=== PATIENT | female | born 1960 | race Caucasian/White ===

== ENCOUNTER → 2017-03-04 | Outpatient (CLI) | payer BC ==
--- NOTE | 2017-03-05 09:41 | MM ---
Reason for exam: screening (asymptomatic). Last mammogram was performed 2 years and 2 months ago. History: Patient is postmenopausal and had first child at age 30. Excisional biopsy of the left breast. Took hormonal contraceptives for 31 years 7 months. Physical Findings: A clinical breast exam by your physician is recommended on an annual basis and results should be correlated with mammographic findings. MG Screening Mammo w CAD Bilateral CC and MLO view(s) were taken. Prior study comparison: January 16, 2015, bilateral MG screening mammo w CAD. October 21, 2012, bilateral digital screening mammo w/CAD. There are scattered fibroglandular densities. There is chronic nodularity in the left breast. There is no discrete abnormality. ASSESSMENT: Benign, BI-RAD 2 RECOMMENDATION: Routine screening mammogram of both breasts in 1 year.
== END | disposition home or self-care (01) ==
LOC: RADMAMWWP 08:20
PROVIDERS: ATTEND Obstetrics & Gynecology
DX: Z12.31 Encounter for screening mammogram for malignant neoplasm of breast (principal)

== ENCOUNTER 2021-09-11 07:50 | Day surgery (SDC) | payer BC ==
[2021-09-05 14:44] VITALS: BMI 32.5
[~2021-09-11 07:50] MED LIST: LACTATED RINGERS 1,000 ML IV SCH; LIDOCAINE 1% (10MG/ML) FOR IV START INTRADERMA PRN
[2021-09-11 08:10] VITALS: TEMP 97.4
[2021-09-11] MEDS ORDERED: PROPOFOL 10 MG/ML 20 ML VIAL IV ONE (09:26)
[2021-09-11] MEDS ORDERED: MIDAZOLAM 2 MG/2 ML VIAL ONE (09:26)
[2021-09-11] MEDS ORDERED: fentaNYL (PF) 50 MCG/ML 2 ML AMP ONE (09:26)
--- NOTE | 2021-09-11 09:52 | P.PCN ---
Date of Procedure: 09/11/21 Procedure(s) Performed: BRIEF HISTORY: Patient is a 60-year-old pleasant white female scheduled for an elective colonoscopy as a part of evaluation of prior history of colon polyps. Last coloscopy was 6 years ago. PROCEDURE PERFORMED: Colonoscopy. PREOPERATIVE DIAGNOSIS: Screening of colon polyps. IV sedation per Anesthesia. PROCEDURE: After informed consent was obtained, the patient, was brought into the endoscopy unit. IV sedation was administered by Anesthesia under continuous monitoring. Digital rectal examination was normal. Initially the Olympus CF-160 flexible video colonoscope was then inserted in the rectum, gradually advanced into the cecum without any difficulty. Careful examination was performed as the scope was gradually being withdrawn. Ileocecal valve and the appendiceal orifice were visualized and appeared normal. Prep was excellent. Mucosa of the cecum, ascending colon, transverse colon, descending colon, sigmoid colon, and rectum appeared normal. Scattered sigmoid diverticulosis. Retroflexion was performed in the rectum and no lesions were seen. The patient tolerated the procedure well. IMPRESSION: Normal-appearing colon from rectum to cecum with no evidence of colorectal neoplasia Scattered Sigmoid diverticulosis. RECOMMENDATIONS: Findings of this examination were discussed with the patient as well as her family. She was advised to have a repeat screening colonoscopy in 5 years from now because of the prior history of colon polyps.
[2021-09-11 10:02] VITALS: RESP 16
[2021-09-11 10:23] VITALS: BP 140/93; PULSE 64
== END 2021-09-11 10:35 | disposition home or self-care (01) ==
LOC: ORWHC2ENDO 07:50
PROVIDERS: ATTEND Internal Medicine Gastroenterology
DX: K57.30 Diverticulosis of large intestine without perforation or abscess without bleeding (principal); Z86.010 Personal history of colon polyps
CPT/HCPCS: 45378; J2250; J3010; J2704

== ENCOUNTER 2023-04-30 19:56 | Emergency (ER) | payer BC ==
[2023-04-30 20:01] VITALS: BP 196/112; PULSE 54; RESP 26; TEMP 97.9
[2023-04-30] MEDS ORDERED: HYDROmorphone 0.5 MG/0.5 ML SYRINGE IM STA ×2 (20:07→21:24)
--- NOTE | 2023-04-30 20:43 | XR ---
EXAMINATION TYPE: XR chest 1V DATE OF EXAM: 04/30/2023 COMPARISON: None INDICATION: Fall, pain TECHNIQUE: Single frontal view of the chest is obtained. FINDINGS: The heart size is normal. The pulmonary vasculature is normal. The lungs are clear. There is a right humeral neck fracture. No additional fractures are identified. No pneumothorax is ev ident. IMPRESSION: 1. No acute pulmonary process. 2. Fracture right humeral neck
--- NOTE | 2023-04-30 20:44 | XR ---
EXAMINATION TYPE: XR humerus RT DATE OF EXAM: 04/30/2023 COMPARISON: Chest x-ray same day HISTORY: Fall, pain TECHNIQUE: 2 view right humerus FINDINGS: There is a fracture of the proximal humeral neck. There is some diastases of the fracture f ragments. No additional fractures are evident. IMPRESSION: 1. Fracture surgical neck right humerus.
--- NOTE | 2023-04-30 21:20 | ED ---
Fall HPI - General Chief Complaint: Fall Stated Complaint: right arm injury Time Seen by Provider: 04/30/23 20:02 Source: family Mode of arrival: wheelchair - History of Present Illness Initial Comments: Patient is a 62-year-old female who presents to the emergency department resents to the emergency department for right arm injury. Patient was walking her dog on the leash when it ran after another dog. Patient fell mainly on her right arm. She has severe pain to her right upper arm. No numbness or tingling. No head injury. - Related Data Home Medications Medication Instructions Recorded Confirmed Atorvastatin [Lipitor] 10 mg PO DAILY 09/05/21 09/11/21 Levothyroxine Sodium [Synthroid] 100 mcg PO DAILY 09/05/21 09/11/21 lisinopriL [Prinivil] 10 mg PO DAILY 09/05/21 09/11/21 Previous Rx's Medication Instructions Recorded HYDROcodone/APAP 7.5-325MG [[place] 1 tab PO Q4HR PRN #18 tab 04/30/23 7.5-325] Allergies Allergy/AdvReac Type Severity Reaction Status Date / Time No Known Allergies Allergy Verified 04/30/23 20:01 Review of Systems ROS Statement: Those systems with pertinent positive or pertinent negative responses have been documented in the HPI. ROS Other: All systems not noted in ROS Statement are negative. Past Medical History Past Medical History: Hyperlipidemia, Hypertension, Thyroid Disorder History of Any Multi-Drug Resistant Organisms: None Reported Past Surgical History: No Surgical Hx Reported Past Anesthesia/Blood Transfusion Reactions: No Reported Reaction Past Psychological History: No Psychological Hx Reported Smoking Status: Never smoker Past Alcohol Use History: Occasional Past Drug Use History: None Reported General Exam Limitations: no limitations General appearance: alert Head exam: Present: atraumatic, normocephalic, normal inspection Respiratory exam: Present: normal lung sounds bilaterally. Absent: respiratory distress, wheezes, rales, rhonchi, stridor Cardiovascular Exam: Present: regular rate, normal rhythm, normal heart sounds. Absent: systolic murmur, diastolic murmur, rubs, gallop, clicks Right Shoulder Exam: Present: normal inspection, full ROM. Absent: tenderness, swelling Upper Arm exam: Present: tenderness, swelling (upper mild). Absent: full ROM (not performed due to pain) Elbow exam: Present: normal inspection, full ROM. Absent: tenderness, swelling Vascular: Present: normal capillary refill Neurological exam: Present: alert Psychiatric exam: Present: normal affect, normal mood Course Vital Signs 04/30/23 19:57 Temperature 97.9 F Pulse Rate 54 L Respiratory 26 H Rate Blood Pressure 196/112 O2 Sat by Pulse 99 Oximetry Medical Decision Making - Medical Decision Making Was pt. sent in by a medical professional or institution (, NEET[facility], SOIL ANALYST, urgent care, hospital, or usp...) When possible be specific @ -No Did you speak to anyone other than the patient for history (EMS, parent, family, police, friend...)? What history was obtained from this source @ -No Did you review nursing and triage notes (agree or disagree)? Why? @ -I reviewed and agree with nursing and triage notes Were old charts reviewed (outside hosp., previous admission, EMS record, old EKG, old radiological studies, urgent care reports/EKG's, usp records)? Report findings @ -No old charts were reviewed Differential Diagnosis (chest pain, altered mental status, abdominal pain women, abdominal pain men, vaginal bleeding, weakness, fever, dyspnea, syncope, headache, dizziness, GI bleed, back pain, seizure, CVA, palpatations, mental health)? @ -Humerus fracture, shoulder fracture, arm sprain EKG interpreted by me (3pts min.). @ -As above X-rays interpreted by me (1pt min.). @ -Surgical neck fracture CT interpreted by me (1pt min.). @ -None done U/S interpreted by me (1pt. min.). @ -None done What testing was considered but not performed or refused? (CT, X-rays, U/S, labs)? Why? @ -None What meds were considered but not given or refused? Why? @ -None Did you discuss the management of the patient with other professionals (professionals i.e. [facility]ET[facility] Vaz, SOIL ANALYST, lab, RT, psych nurse, social worker delinquency prevention, dairy department manager, teacher, radiation safety officer, manager case)? Give summary @ -No Was smoking cessation discussed for >3mins.? @ -No Was critical care preformed (if so, how long)? @ -No Were there social determinants of health that impacted care today? How? (Homelessness, low income, unemployed, alcoholism, drug addiction, transportation, low edu. Level, literacy, decrease access to med. care, [facility], rehab)? @ -No Was there de-escalation of care discussed even if they declined (Discuss DNR or withdrawal of care, Hospice)? DNR status @ -No What co-morbidities impacted this encounter? (DM, HTN, Smoking, COPD, CAD, Cancer, CVA, ARF, Chemo, Hep., AIDS, mental health diagnosis, sleep apnea, morbid obesity)? @ -None Was patient admitted / discharged? Hospital course, mention meds given and route, prescriptions, significant lab abnormalities, going to OR and other pertinent info. @ -Patient presenting with right arm pain after fall. No vascular compromise. X-ray interpreted by myself showing surgical neck fracture of the right humerus. Patient placed in a sling. We discussed fracture care in detail. Patient will be discharged with [place] for severe pain. She is referred to document imaging specialist Drug Therapy requiring intensive monitoring for toxicity (Heparin, Nitro, Insulin, Cardizem)? @ -No Were any procedures done? @ -No Diagnosis/symptom? @ -Fracture of surgical neck of right humerus Acute, or Chronic, or Acute on Chronic? acute Uncomplcated (without systemic symptoms) or Complicated (systemic symptoms) -Uncomplicated Side effects of treatment? @ -No Exacerbation, Progression, or Severe Exacerbation? @ -No Poses a threat to life or bodily function? How? (Chest pain, [place], [place], pneumonia, PE, COPD, DKA, ARF, appy, cholecystitis, CVA, Diverticulitis, Homicidal, Suicidal, threat to staff... and all critical care pts) @ -No Dr. Geronimo is my attending Disposition Clinical Impression: Fracture of surgical neck of right humerus Disposition: HOME SELF-CARE Condition: Good Instructions (If sedation given, give patient instructions): Arm Fracture in Adults (ED) Additional Instructions: Rest the joint. Ice the injury for the next 24-48 hours. If symptoms continue after, apply warm compress. Take Tylenol or Motrin as needed for pain. Save [place] for severe pain do not take [place] and Tylenol together. . Follow-up with orthopedic specialistin 1 to 2 days. Return to the emergency department if you experience new, concerning, or worsening symptoms. Prescriptions: HYDROcodone/APAP 7.5-325MG [[place] 7.5-325] 1 tab PO Q4HR PRN #18 tab PRN Reason: Pain Is patient prescribed a controlled substance at d/c from ED?: No Referrals: Marco Antonio George DO [Primary Care Provider] - 1-2 days More Ingram DO [Doctor of Osteopathic Medicine] - 1-2 days
== END 2023-04-30 21:40 | disposition home or self-care (01) ==
LOC: EC 19:56
DX: S42.214A Unspecified nondisplaced fracture of surgical neck of right humerus, initial encounter for closed fracture (principal); E78.5 Hyperlipidemia, unspecified; I10 Essential (primary) hypertension; E07.9 Disorder of thyroid, unspecified; Z79.890 Hormone replacement therapy; Z79.899 Other long term (current) drug therapy; W01.0XXA Fall on same level from slipping, tripping and stumbling without subsequent striking against object, initial encounter
CPT/HCPCS: 73060; 71045; 99284; 96372 ×2; J1170

== ENCOUNTER → 2023-05-09 | Outpatient (CLI) | payer BC ==
--- NOTE | 2023-05-11 01:17 | CT ---
EXAMINATION TYPE: CT shoulder RT wo con DATE OF EXAM: 05/09/2023 COMPARISON: Humeral radiograph 04/30/2023 HISTORY: 62-year-old female 3 PART FRACTURE OF SURGICAL NECK TECHNIQUE: Contiguous axial scanning of the right shoulder without IV contrast. Coronal and sagittal reconstructions performed. 3-D reconstructions generated on a dedicated independent workstation. CT DLP: 425 mGycm Automated exposure control for dose reduction was used. FINDINGS: There is a markedly comminuted fracture of the surgical neck of the numerous. 7 mm of posterior displ acement. Multiple fractures are present involving both the lesser tuberosity and greater tuberosity w ith some displacement of fragments up to 1.4 cm. The glenohumeral joint appears intact. No atrophy of the rotator cuff musculature. Nodular soft tissue density high in the right axilla against the chest wall measuring up to 2.2 cm. T he exact etiology is unclear. Mild degenerative change of the AC joint. IMPRESSION: 1. MARKEDLY COMMINUTED FRACTURE OF THE SURGICAL NECK OF THE HUMERUS. 7 MM POSTERIOR DISPLACEMENT. MUL TIPLE FRACTURE FRAGMENTS ARE ALSO PRESENT INVOLVING BOTH LESSER TUBEROSITY AND GREATER TUBEROSITY WIT H SOME DISPLACEMENT OF FRAGMENTS BY UP TO 1.4 CM. 2. Mild AC joint OA.
== END | disposition home or self-care (01) ==
LOC: RADCTMAIN 10:47
PROVIDERS: ATTEND Orthopaedic Surgery
DX: M19.011 Primary osteoarthritis, right shoulder (principal); S42.231A 3-part fracture of surgical neck of right humerus, initial encounter for closed fracture; S82.62XD Displaced fracture of lateral malleolus of left fibula, subsequent encounter for closed fracture with routine healing; S92.352D Displaced fracture of fifth metatarsal bone, left foot, subsequent encounter for fracture with routine healing; Y99.9 Unspecified external cause status

== ENCOUNTER → 2023-12-19 | Outpatient (CLI) | payer BC ==
--- NOTE | 2023-12-22 12:38 | MM ---
Reason for Exam: Screening (asymptomatic). Last mammogram was performed 6 year(s) and 10 month(s) ago. Patient History: Menarche at age 11. First Full-Term at age 30. Late child-bearing (after 29). Postmenopausal. Patient has history of breast feeding. Hormonal Contraceptives for 30 years, 7 months. Excisional Biopsy on the Left side. Risk Values: Cary 5 year model risk: 2.6%. NCI Lifetime model risk: 10.4%. Prior Study Comparison: 10/21/2012 Bilateral Screening Mammogram, [facility]. 01/16/2015 Bilateral Screening Mammogram, [facility]. 03/04/2017 Bilateral Screening Mammogram, [facility]. Tissue Density: The breasts are heterogeneously dense, which may obscure small masses. Findings: Analyzed By CAD. There is no suspicious group of microcalcifications or new suspicious mass in either breast. Stable benign-appearing lymph node left upper outer quadrant. Overall Assessment: Benign, BI-RAD 2 Management: Screening Mammogram of both breasts in 1 year. . Patient should continue monthly self-breast exams. A clinical breast exam by your physician is recommended on an annual basis. This exam should not preclude additional follow-up of suspicious palpable abnormalities. Note on Cary scores and lifetime risk: 1. A Cary score greater than 3% is considered moderate risk. If this is the case, consider specialist referral to assess eligibility for a risk reducing agent. 2. If overall lifetime risk for the development of breast cancer is 20% or higher, the patient may qualify for future screening with alternating mammogram and breast MRI. Electronically signed and approved by: Tj Barakat M.D. Radiologis
--- NOTE | 2023-12-23 07:24 | BD ---
EXAMINATION TYPE: Axial Bone Density DATE OF EXAM: 12/19/2023 CLINICAL HISTORY: 63 years old Female. ICD-10 CODE: Z78.0 POST MENOPAUSAL WITHOUT HRT Height: 69 Weight: 162 FRAX RISK QUESTIONS: Alcohol (3 or more units per day): no Family History (Parent hip fracture): no Glucocorticoids (More than 3mos): no (Ex: prednisone, prednisolone, methylprednisolone, dexamethasone, and hydrocortisone). History of Fracture in Adulthood: shoulder, foot, tib-fib Secondary Osteoporosis: 1. Type 1 Diabetes: no 2. Hyperthyroidism: no 3. Menopause before 45: yes 4. Malnutrition: no 5. Chronic liver disease: no Rheumatoid Arthritis: no Current Tobacco Use: no RISK FACTORS HISTORY OF: Hip Fracture (Right/Left): no Spine Fracture: no History of Wrist Fracture: no Surgery to Spine/Hip(right/left)/Wrist (right/left): no MEDICATIONS: Thyroid Medications: Levothyroxine How Long: past 10 years Osteoporosis Medications:no EXAM MEASUREMENTS: Bone mineral densitometry was performed using the mInfo System. Bone mineral density as measured about the Lumbar spine is: ----- L1-L4(G/cm2): 1.068 T Score Values are as follows: ----- L1: -1.7 ----- L2: -1.3 ----- L3: -0.6 ----- L4: -0.5 ----- L1-L4: -0.9 Z Score Values are as follows: ----- L1: -0.5 ----- L2: -0.1 ----- L3: 0.6 ----- L4: 0.7 ----- L1-L4: -0.3 Baseline Study Bone mineral density about the R hip (g/cm2): 0.901 Bone mineral density about the L hip (g/cm2): 0.877 T Score values are as follows: -----R Neck: -0.9 -----L Neck: -1.0 -----R Total: -0.8 -----L Total: -1.0 Z Score values are as follows: -----R Neck: 0.3 -----L Neck: 0.2 -----R Total: 0.1 -----L Total: -0.1 Baseline Study FRAX%s: The graph provided illustrates a 13.1% chance for a major osteoporotic fx and a 0.9% chance f or the hips probability for fx in 10 years time. IMPRESSION: Normal (Values between +1 and -1 indicate normal bone mass). Consider repeating this study in 5 year s or sooner if there is some new clinical indication. NOTE: T-SCORE=SD OF THE YOUNG ADULT MEAN.
== END | disposition home or self-care (01) ==
LOC: RADMAMWWP 14:09
PROVIDERS: ATTEND Obstetrics & Gynecology
DX: Z12.31 Encounter for screening mammogram for malignant neoplasm of breast (principal); M85.89 Other specified disorders of bone density and structure, multiple sites; Z78.0 Asymptomatic menopausal state
CPT/HCPCS: 77063; 77067; 77080